=== PATIENT | female | born 1980 | race Caucasian/White ===

== ENCOUNTER 2018-08-03 18:57 | Emergency (ER) | payer OTHER ==
[2018-08-03] MEDS ORDERED: KETOROLAC TROMETHAMINE 60 MG/2 ML VIAL IM ONE (19:32)
[2018-08-03] MEDS ORDERED: METHOCARBAMOL 500 MG TABLET PO ONE (19:32)
--- NOTE | 2018-08-03 19:32 | PDOC ---
History of Present Illness - General History Source: Patient Exam Limitations: No Limitations - History of Present Illness Initial Comments: 08/03/18 19:38 The patient is a 38 year old female, with no significant past medical history, who presents to the ED complaining of right wrist pain for the past week. She describes her pain as ranging from mild to moderate, as well as tingling and numbness. She notes that last night this pain woke her up from sleep. 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 She denies any kind of injuries. The patient denies chest pain, shortness of breath, headache and dizziness. Allergies: None Past surgical history: None reported Social History: No alcohol, tobacco or drug use reported <Dutch Pérez - Last Filed: 08/03/18 19:38> <Anaid Wilhelm - Last Filed: 08/03/18 23:33> - General Chief Complaint: Pain Stated Complaint: RIGHT WRIST PAIN Time Seen by Provider: 08/03/18 18:58 Past History <Dutch Pérez - Last Filed: 08/03/18 19:38> - Past Medical History COPD: No Other medical history: DENIES <Anaid Wilhelm - Last Filed: 08/03/18 23:33> - Past Medical History Allergies/Adverse Reactions: Allergies Allergy/AdvReac Type Severity Reaction Status Date / Time No Known Allergies Allergy Unverified 08/03/18 18:58 Home Medications: Ambulatory Orders Ibuprofen [Motrin -] 600 mg PO TID #30 tablet 08/03/18 Methocarbamol [Robaxin -] 500 mg PO TID #30 tablet 08/03/18 l-Norgest/E.estradiol-E.estrad [Loseasonique Tablet] 1 tab PO DAILY 08/03/18 Review of Systems - Review of Systems Able to Perform ROS?: Yes Comments:: 08/03/18 19:38 GENERAL/CONSTITUTIONAL: No fever or chills. No weakness. HEAD, EYES, EARS, NOSE AND THROAT: No change in vision. No ear pain or discharge. No sore throat. GASTROINTESTINAL: No nausea, vomiting, diarrhea or constipation. GENITOURINARY: No dysuria, frequency, or change in urination. CARDIOVASCULAR: No chest pain or shortness of breath. RESPIRATORY: No cough, wheezing, or hemoptysis. MUSCULOSKELETAL: (+) Right wrist pain. No joint or muscle swelling or pain. No neck or back pain. SKIN: No rash NEUROLOGIC: No headache, vertigo, loss of consciousness, or change in strength/ sensation. ENDOCRINE: No increased thirst. No abnormal weight change. HEMATOLOGIC/LYMPHATIC: No anemia, easy bleeding, or history of blood clots. ALLERGIC/IMMUNOLOGIC: No hives or skin allergy. <Dutch Pérez - Last Filed: 08/03/18 19:38> *Physical Exam - Physical Exam Comments: 08/03/18 19:39 Constitutional: Awake, alert, oriented. No acute distress. Head: Normocephalic. Atraumatic Eyes: PERRL. EOMI. Conjunctivae are not pale. ENT: Mucous membranes are moist and intact. Posterior pharynx without exudates or erythema. Uvula midline. Neck: Supple. Full ROM. No lymphadenopathy. Cardiovascular: Regular rate. Regular rhythm. S1, S2 regular. Distal pulses are 2+ and symmetric. Pulmonary/Chest: No evidence of respiratory distress. Clear to auscultation bilaterally No wheezing, rales or rhonchi. Musculoskeletal: No pain on Phalynges test. No edema. No cyanosis. No clubbing. Full range of motion in all extremities. Nocalf tenderness. Radial/ pedal pulses are intact and 2+ bilaterally. Full ROM, good color, blood flow, hands not cold. Skin: Skin is warm and dry. No petechiae. No purpura. Neurological: Alert and oriented to person, place, and time. Cranial nerves II -XII are grossly intact. Normal speech. Strength is grossly symmetric. No sensory deficits. <Dutch Pérez - Last Filed: 08/03/18 19:38> Medical Decision Making - Medical Decision Making 08/03/18 23:31 Pt has no hx of fall or injury; no need for xrays. Pt has peripheral neuropathic pain. Young's and phalens tests normal. Pt likely not with thoracic outlet obstruction or carpal tunnel disease. She will be treated with NSAIDS and muscle relaxants. She will wear her brace and limit activity in which she is using her ipad and iphone in bed. <Anaid Wilhelm - Last Filed: 08/03/18 23:33> *DC/Admit/Observation/Transfer - Attestations Scribe Attestion: 08/03/18 19:39 Documentation prepared by Dutch Pérez, acting as infertility medical assistant for Anaid Wilhelm MD <Dutch Pérez - Last Filed: 08/03/18 19:38> - Discharge Dispostion Decision to Admit order: No <Anaid Wilhelm - Last Filed: 08/03/18 23:33> Diagnosis at time of Disposition: Neuropathy, Muscle spasm - Discharge Dispostion Disposition: HOME Condition at time of disposition: Stable - Prescriptions Prescriptions: Ibuprofen [Motrin -] 600 mg PO TID #30 tablet Methocarbamol [Robaxin -] 500 mg PO TID #30 tablet - Post Discharge Activity Forms/Work/School Notes: Back to Work
[2018-08-03] MEDS ORDERED: METHOCARBAMOL 500 MG TABLET ONE (19:36)
[2018-08-03] MEDS ORDERED: KETOROLAC TROMETHAMINE 60 MG/2 ML VIAL ONE (19:37)
== END 2018-08-03 19:45 | disposition home or self-care (01) ==
LOC: FER 18:57
PROC: 3E0233Z Introduction of Anti-inflammatory into Muscle, Percutaneous Approach (ICD-10-PCS; principal; 2018-08-03)
DX: G62.9 Polyneuropathy, unspecified (principal); M62.838 Other muscle spasm
CPT/HCPCS: 99282-25

== ENCOUNTER 2021-01-03 18:22 | Emergency (ER) | payer OTHER ==
[2021-01-03 18:37] VITALS: BP 114/68; PULSE 70; TEMP 98; BMI 27.0
[2021-01-03] MEDS ORDERED: KETOROLAC TROMETHAMINE 60 MG/2 ML VIAL IM ONE (19:49)
[2021-01-03] MEDS ORDERED: KETOROLAC TROMETHAMINE 60 MG/2 ML VIAL ONE (20:18)
== END 2021-01-03 20:49 | disposition home or self-care (01) ==
LOC: FER 18:22
PROC: 3E0233Z Introduction of Anti-inflammatory into Muscle, Percutaneous Approach (ICD-10-PCS; principal; 2021-01-03)
DX: M54.13 Radiculopathy, cervicothoracic region (principal)
CPT/HCPCS: 99284-25